=== PATIENT | female | born 1950 | race Caucasian/White ===

== ENCOUNTER 2016-07-03 16:48 | Emergency (ER) | payer BC ==
[~2016-07-03] VITALS: Ht 168.9 cm; Wt 79.2 kg
[~2016-07-03 16:48] MED LIST: CIPR-255 PO; ERGO1CAP35 PO; MULT-360 PO; MULT-506 PO; OMEP40CA36 PO; SERT-234 PO
[2016-07-03 16:55] VITALS: TEMP 37.5; Ht 168.9 cm; Wt 79.2 kg
[2016-07-03] MEDS ORDERED: CHOL2000 PO (17:27)
[2016-07-03] MEDS ORDERED: CALC600T PO (17:27)
[2016-07-03] MEDS ORDERED: ASPI325T45 PO (17:27)
[2016-07-03] MEDS ORDERED: MULT-513 PO (17:27)
[2016-07-03] MEDS ORDERED: IBUPROFEN 600 MG TAB PO STA (17:54)
--- NOTE | 2016-07-03 18:51 | DIAGNOSTIC IMAGING REPORT ---
SACRUM AND COCCYX 3 VIEWS CLINICAL HISTORY: Fall with sacrococcygeal pain. FINDINGS: 3 views of the sacrum and coccyx are obtained. Correlation is made with MRI of lumbar spine dated 03/17/2010. The skeletal structures are osteopenic. There is offset at the sacrococcygeal junction, best seen on the lateral view. This could represent fracture/dislocation, and represents a change from the 2015 and MRI examination. No additional findings are concerning for acute fracture. Mild sclerotic change is noted in the sacral iliac joints. The remainder of the bony pelvis is intact as visualized. A nonobstructed abdominal bowel gas pattern is observed. Phleboliths are noted in the pelvis. IMPRESSION: 1. There is offset at the sacrococcygeal junction, best seen on the lateral view. This likely represents fracture/dislocation, as is changed from the 03/17/2010 MRI of the lumbar spine. 2. No additional findings are concerning for acute fracture. Electronically signed by: Timmy Murray M.D. 07/03/2016 6:50 PM Dictated Date/Time: 07/03/2016 6:47 PM
--- NOTE | 2016-07-03 18:54 | DIAGNOSTIC IMAGING REPORT ---
CT SCAN OF THE BRAIN WITHOUT IV CONTRAST CLINICAL HISTORY: Fall. Head injury. COMPARISON STUDY: No priors. TECHNIQUE: Unenhanced axial CT scan of the brain is performed from the vertex to the skull base. CT DOSE: 537.48 mGy.cm FINDINGS: Brain parenchyma: There are age-related involutional changes noting minimal subcortical and periventricular microangiopathic change. There is no hemorrhage, mass effect, or evidence of acute territorial ischemia by CT criteria. Luther-white matter is preserved. No extra-axial fluid collection is seen. Ventricles, sulci, cisterns: Prominent secondary to involutional change. Intracranial vasculature: There is mild atherosclerotic calcification of the cavernous carotid arteries. Calvarium: The skeletal structures are osteopenic. No depressed calvarial fracture is seen. Sinuses and mastoids: The visualized paranasal sinuses are clear. The mastoid air cells are well pneumatized. Orbits: The bony orbits are grossly intact. IMPRESSION: There is no hemorrhage, mass effect, or evidence of acute territorial ischemia by CT criteria. Electronically signed by: Timmy Murray M.D. 07/03/2016 6:52 PM Dictated Date/Time: 07/03/2016 6:50 PM
[2016-07-03 19:19] VITALS: BP 133/75; PULSE 70; O2SAT 95
--- NOTE | 2016-07-03 23:33 | EMERGENCY ROOM VISIT NOTE ---
ED Visit Note First contact with patient: 17:26 Chief Complaint: I fell and struck my head and tailbone. History of Present Illness: Ms. Puga is a 66-year-old white female who ambulates into the ED complaining of occipital head pain and coccyx pain. Patient reports she was dancing at a [employer] social last night. She reports she spent around during a dance, lost her balance and fell onto her buttocks and continued to fall backwards striking her head on a concrete slab. She reports at the time of the injury there was no loss of consciousness but did have some mild transient dizziness. She was seen by her primary care provider's office today and referred to the ED for further evaluation and care and a head CT. Currently she is complaining of pain over the occipital area. She describes this as an achy sensation. She rates her discomfort 1/10. Her pain is nonradiating. Her pain worsens with palpation. She has not identified any alleviating factors related to the pain. She did report she took Tylenol for pain approximately 6 hours before she arrived in the emergency department. Associated with her pain she reports that she is mildly nauseated but has not vomited and is mildly light sensitive. Additionally she complains of coccyx pain. The pain is just right lateral of the coccyx. She describes this as a sharp pain. Her pain worsens when sitting on her buttocks, moving from the sitting to the standing position and palpation. She has not identified any alleviating factors related to the pain. She denies any associated symptoms with her injuries including dizziness, visual changes, hearing changes, difficulty speaking, difficulty swallowing, difficulty ambulating/coordinating, chest pain, shortness of breath, abdominal pain, nausea, vomiting, cervical and thoracic back pain, extremity weakness/ numbness/tingling. Review of Systems: As noted above in history of present illness. All body systems were reviewed and found to be negative as noted above. Past Medical History: (1) Benign thyroid cyst (2) Cholecystitis (3) Depression (emotion) (4) Dyslipidemia Surgical Problems: (1) Status post Mohs surgery Current Medications: Zoloft, calcium, aspirin, vitamin D3, multivitamins. Allergies to Medications: Sulfa. Social History: Patient is currently employed; she feels safe in her home environment; she denies tobacco use; she admits to alcohol use. Physical Examination: Vital Signs: Date Time Temp Pulse Resp B/P Pulse Ox O2 Delivery O2 Flow Rate FiO2 07/03/16 19:19 70 18 133/75 95 07/03/16 16:55 37.5 97 18 115/75 100 Room Air GENERAL: 66-year-old female in mild distress due to pain, nontoxic-appearing, afebrile and hemodynamically stable. NEUROLOGICAL: Awake, alert and oriented to person, place and time. Answering questions appropriately and following commands. Normal gait. Good hand eye coordination. No focal motor or sensory deficits. Romberg test negative. Pronator test negative. Cranial nerves II through XII grossly intact. Short- term and long-term recall. Normal rapid alternate movements of the hands and fingers. SKIN: Warm, dry and pink. No trauma noted. HEENT: Atraumatic and normocephalic. Skull: No bony deformity or crepitus. Mild tenderness over the occipital scalp with a small contusion. No raccoon's eyes or rosas signs. No drainage in the ears in the nostrils; no hemotympanum. Face: No bony deformity, crepitus, swelling or ecchymosis. PERRLA. EOMI without nystagmus. No malocclusion. Airway patent. Speech is normal and clear. Trachea midline. No jugular venous distention. BACK: No tenderness over the bony cervical, thoracic and lumbar spine. Full range of motion of the cervical spine. Moderate tenderness just right lateral to the coccyx and lower sacrum in the gluteal area. No contusions, swelling. No palpable bony deformity or crepitus. THORAX: Lungs sounds are clear to auscultation and equal bilaterally with symmetrical chest wall. No crepitus, tenderness, subcutaneous air or deformities noted. ABDOMEN: Flat, soft and nontender. Positive bowel sounds in all quadrants. No guarding, rigidity or organomegaly. EXTREMITIES: Moves all extremities well on command and with purpose. All distal neurovascular statuses are intact and equal bilaterally. ED Course: Patient is assessed as noted above. Head CT: Was reviewed by myself and read by the radiologist showing no intracranial hemorrhage, mass effect, evidence of acute ischemic CVA or skull fractures. Sacrum/Coccyx X-Rays: Was reviewed by myself and read by the radiologist showing an offset of the sacrococcyx junction which likely represents fracture/ dislocation. Patient was given 600 mg of ibuprofen by mouth for pain. Patient was educated about tonight's findings and instructed on her treatment plan; she verbalizes understanding and agreement with this plan. Clinical Impression: Fall. Scalp contusion with mild closed head injury. Coccyx fracture. Disposition: Patient discharged home in stable condition; prior to departure she was reassessed and subjectively reported she was feeling better. Plan: Comfort measures were discussed with the patient. Signs of worsening head injury were discussed with the patient. Patient was encouraged to follow-up with family physician for recheck if no better in 3-5 days. Patient was encouraged return the ED for uncontrolled pain, bloody stools, worsening signs of head injury or any new/concerning symptoms.
== END 2016-07-03 19:21 | disposition home or self-care (01) ==
LOC: C.EDD 17:41
DX: S00.03XA Contusion of scalp, initial encounter (principal); S32.2XXA Fracture of coccyx, initial encounter for closed fracture; W19.XXXA Unspecified fall, initial encounter; Y93.41 Activity, dancing; E78.5 Hyperlipidemia, unspecified; F32.9 Major depressive disorder, single episode, unspecified